=== PATIENT | male | born 1965 | race Caucasian/White ===

== ENCOUNTER 2021-01-27 12:51 | Emergency (ER) | payer MEDICAID, OTHER ==
[~2021-01-27] VITALS: Ht 180.3 cm; Wt 92.0 kg
[2021-01-27 12:59] VITALS: BP 139/94
--- NOTE | 2021-01-27 15:08 | NUR ---
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
--- NOTE | 2021-01-27 15:08 | NUR ---
Milo stern in [facility] - 01/27/21 at 1509 by AMISH PT TO ROOM FROM [facility]
[2021-01-27] MEDS ORDERED: KETOROLAC 30 MG/1 ML ONE (15:37)
[2021-01-27] MEDS ORDERED: KETOROLAC 30 MG/1 ML IM ONE (16:00)
--- NOTE | 2021-01-27 16:25 | NUR ---
Patient given discharge instructions and they have confirmed that they understand the instructions. Patient ambulatory with steady gait. NAD, all questions answered appropriately, denies additional needs at this time. No personal belongings left in room after discharge.
== END 2021-01-27 16:26 | disposition home or self-care (01) ==
LOC: ED 13:21
DX: S39.012A Strain of muscle, fascia and tendon of lower back, initial encounter (principal); M51.36 Other intervertebral disc degeneration, lumbar region; F17.210 Nicotine dependence, cigarettes, uncomplicated; X58.XXXA Exposure to other specified factors, initial encounter; Y93.89 Activity, other specified; Y92.89 Other specified places as the place of occurrence of the external cause; Y99.8 Other external cause status
CPT/HCPCS: 72110; 96372; 99283; J1885